=== PATIENT | female | born 2000 | race Two or more races ===

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

== ENCOUNTER 2025-05-06 14:18 | Emergency (ER) | payer OTHER ==
[~2025-05-06] VITALS: Ht 152.4 cm; Wt 61.0 kg
[2025-05-06 14:27] VITALS: TEMP 98.1
[2025-05-06] MEDS: HYDROCORTISONE 1% 30 GM CREAM TP ONE (15:26)
[2025-05-06] MEDS: CETIRIZINE HCL 10 MG TABLET PO ONE (15:26)
[2025-05-06] MEDS ORDERED: CETI-432 PO (15:28)
[2025-05-06 15:30] VITALS: BP 128/65; PULSE 65; RESP 17; O2SAT 98
== END 2025-05-06 15:42 | disposition home or self-care (01) ==
LOC: EMS 14:18
DX: T63.441A Toxic effect of venom of bees, accidental (unintentional), initial encounter (principal); Y92.89 Other specified places as the place of occurrence of the external cause
CPT/HCPCS: 99283